=== PATIENT | male | born 1940 | race Caucasian/White ===

== ENCOUNTER → 2018-05-02 | Outpatient (CLI) | payer MEDICARE ==
[~2018-05-02] MED LIST: ASCO500 PO; ASPI81CH; ASPI81EC; ASPI81EC PO; ASPIRIN 162 MG; ATEN50; ATOR10; CARV6.25 PO; CHLORTHALID; CLOP75; DEXL60CA3; DOXA1; DOXA1 PO; DOXA2 PO; FURO20 PO; HYDACE5 PO; HYDCHL25; IRBE150 PO; LANS30EC PO; LOSA50; LOSA50 PO; METO25ER PO; NIACIN500 MG PO; NIACINAMIDE PO; SIMV10 PO; Simvastatin20 MG PO
== END | disposition home or self-care (01) ==
LOC: PLD 14:19 → LAB SHORT 14:19
DX: L30.8 Other specified dermatitis (principal)
CPT/HCPCS: 88305; 88312

== ENCOUNTER → 2019-03-18 | Outpatient (CLI) | payer MEDICARE | END | disposition home or self-care (01) | LOC: PLD 11:31 → LAB SHORT 11:31 | DX: D48.5 Neoplasm of uncertain behavior of skin (principal) | CPT/HCPCS: 88305 ==

== ENCOUNTER → 2019-07-29 | Outpatient (CLI) | payer MEDICARE | END | disposition home or self-care (01) | LOC: LAB SHORT 08:43 → PLD 08:43 | DX: D48.5 Neoplasm of uncertain behavior of skin (principal) | CPT/HCPCS: 88305 ==